=== PATIENT | female | born 1990 | race Caucasian/White ===

== ENCOUNTER → 2017-07-20 | Outpatient (CLI) | payer OTHER ==
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
== END | disposition home or self-care (01) ==
LOC: RADMRIMAIN 19:51
PROVIDERS: ATTEND Psychiatry & Neurology Pain Medicine
DX: M51.26 Other intervertebral disc displacement, lumbar region (principal); M51.36 Other intervertebral disc degeneration, lumbar region
CPT/HCPCS: 72148

== ENCOUNTER 2021-02-13 08:13 | Day surgery (SDC) | payer OTHER ==
[2021-02-12 12:01] VITALS: BMI 34.1
[~2021-02-13 08:13] MED LIST: ACETAMINOPHEN TAB 500 MG TAB PO PRN; DEXAMETHASONE SOD PHOSPHATE 4 MG/ML 1 ML VIAL IV ONE; FAMOTIDINE 20 MG/2 ML VIAL IV PRN; HEPARIN SODIUM,PORCINE/PF 5,000 UNIT/0.5 ML SYRINGE SQ PRN; LACTATED RINGERS 1,000 ML IV SCH; ONDANSETRON 4 MG/2 ML VIAL IVP ONE
[2021-02-13] MEDS ORDERED: LIDOCAINE 1% (10MG/ML) FOR IV START INTRADERMA ONE (09:04)
[2021-02-13] MEDS ORDERED: SCOPOLAMINE 1.5MG/72HR PATCH TRANSDERM ONE (09:20)
--- NOTE | 2021-02-13 09:34 | P.GSHP ---
History of Present Illness H&P Date: 02/13/21 Chief Complaint: Right upper quadrant pain This a 22-year-old female who presents today for laparoscopic cholestatic. Patient's found evidence of cholelithiasis. Past Medical History Past Medical History: GERD/Reflux Additional Past Medical History / Comment(s): back pain History of Any Multi-Drug Resistant Organisms: None Reported Past Surgical History: Tonsillectomy Past Anesthesia/Blood Transfusion Reactions: Previous Problems w/ Anesthesia, Motion Sickness Additional Past Anesthesia/Blood Transfusion Reaction / Comment(s): after tonsillectomy experienced shaking from anesthesia denies seizure Smoking Status: Current some day smoker, Vaper - Past Family History Mother Family Medical History: No Reported History Medications and Allergies Home Medications Medication Instructions Recorded Confirmed Type Ascorbic Acid [Vitamin C] 500 mg PO DAILY 02/12/21 02/12/21 History Biotin 5 mg PO DAILY 02/12/21 02/12/21 History Cider Vinegar [Apple Cider Vinegar] 300 mg PO DAILY 02/12/21 02/12/21 History Cyclobenzaprine [Flexeril] 7.5 mg PO DAILY 02/12/21 02/12/21 History Gabapentin [Neurontin] 200 mg PO TID 02/12/21 02/12/21 History Meloxicam 15 mg PO DAILY 02/12/21 02/12/21 History Multivitamins, Thera [Multivitamin 1 tab PO DAILY 02/12/21 02/12/21 History (formulary)] Omeprazole [PriLOSEC] 40 mg PO DAILY 02/12/21 02/12/21 History Turmeric Root Extract [Turmeric] 500 mg PO DAILY 02/12/21 02/12/21 History traMADol HCl [Ultram] 100 mg PO Q6HR PRN 02/12/21 02/12/21 History Allergies Allergy/AdvReac Type Severity Reaction Status Date / Time No Known Allergies Allergy Verified 02/12/21 11:50 Surgical - Exam Vital Signs Temp Pulse Resp BP Pulse Ox 98.0 F 74 16 124/63 100 02/13/21 08:51 02/13/21 08:51 02/13/21 08:51 02/13/21 08:51 02/13/21 08:51 - General well developed, well nourished, no distress - Eyes PERRL - ENT normal pinna - Neck no masses - Respiratory normal expansion - Cardiovascular Rhythm: regular - Abdomen Abdomen: soft, non tender Assessment and Plan Assessment: Cholelithiasis Right upper quadrant pain We'll perform laparoscopic cholecystectomy
[2021-02-13] MEDS ORDERED: PROPOFOL 10 MG/ML 20 ML VIAL IV ONE (09:41)
[2021-02-13] MEDS ORDERED: fentaNYL (PF) 50 MCG/ML 2 ML AMP ONE (09:41)
[2021-02-13] MEDS ORDERED: HYDROmorphone (PF) 1 MG/ML ONE (09:41)
[2021-02-13] MEDS ORDERED: LIDOCAINE 1% INJ 10MG/ML (20 ML MDV) ONE (09:41)
[2021-02-13] MEDS ORDERED: GLYCOPYRROLATE 0.2 MG/ML 2 ML VIAL ONE (09:41)
[2021-02-13] MEDS ORDERED: MIDAZOLAM 2 MG/2 ML VIAL ONE (09:41)
[2021-02-13] MEDS ORDERED: NEOSTIGMINE 1 MG/ML 10 ML VIAL ONE (09:41)
[2021-02-13] MEDS ORDERED: SUCCINYLCHOLINE CHLORIDE 100 MG/5 ML SYR IV ONE (09:41)
[2021-02-13] MEDS ORDERED: ROCURONIUM 10 MG/ML (5 ML VIAL) IV ONE (09:41)
[2021-02-13] MEDS ORDERED: LIDOCAINE 1%-EPI 1:100,000 20 ML VIAL SQ ONE (09:45)
--- NOTE | 2021-02-13 10:35 | P.OP ---
Date of Procedure: 02/13/21 Preoperative Diagnosis: Cholelithiasis Postoperative Diagnosis: Cholelithiasis Procedure(s) Performed: Laparoscopic cholecystectomy Anesthesia: KAT Surgeon: Roland Michael Estimated Blood Loss (ml): 5 Pathology: other (Gallbladder) Condition: stable Disposition: PACU Description of Procedure: The patient was placed on the operating table. The patient received a general endotracheal tube anesthesia. The patients abdomen was prepped and draped in the usual sterile fashion. Through an infraumbilical stab incision, the fascia of the anterior abdominal wall was grasped with a pair of Kochers and then the Veress needle was placed in the peritoneal cavity. Position of the Veress needle was confirmed with positive drop test. The abdomen was then insufflated. After adequate insufflation, the 10 mm trocar was placed in the peritoneal cavity. Following this the laparoscope was placed in the peritoneal cavity. The patient was placed in the head-up, right side up position and then a 5 mm trocar was placed in the right lateral and right subcostal position under direct visualization. A 8 mm trocar was placed in the epigastric position. The gallbladder was grasped in the fundus and infundibulum. Traction on the gallbladder was placed in the lateral and the cephalad positions. The triangle of Calot was visualized.. The cystic duct was bluntly dissected until the union of the cystic duct and common bile duct was seen. A critical view of safety was achieved. The cystic duct was then divided and sealed with the Harmonic scissors. A PDS Endoloop was then placed throughout the cystic duct stump. The cystic artery divided and sealed with the Harmonic scissors. The gallbladder was then removed from the liver bed using Harmonic scissors. The gallbladder was then extracted through the epigastric port site. Operative field was checked for any bleeding spots and Harmonic scissors was used to coagulate the liver bed. The abdomen was irrigated. The trocars were removed. The skin was closed using interrupted 3-0 Vicryl suture. Dermabond dressing were applied. The patient tolerated the procedure well.
[2021-02-13 10:40] VITALS: TEMP 97
[2021-02-13] MEDS: HYDROmorphone 0.5 MG/0.5 ML SYRINGE IVP PRN ×2 (10:47→10:54)
[2021-02-13 11:02] VITALS: RESP 16
[2021-02-13 12:18] VITALS: BP 135/79; PULSE 59
== END 2021-02-13 12:13 | disposition home or self-care (01) ==
LOC: OR 08:13
PROVIDERS: ATTEND Surgery
DX: K80.10 Calculus of gallbladder with chronic cholecystitis without obstruction (principal); K21.9 Gastro-esophageal reflux disease without esophagitis; Z90.89 Acquired absence of other organs; F17.290 Nicotine dependence, other tobacco product, uncomplicated; Z79.899 Other long term (current) drug therapy
CPT/HCPCS: 81025; 88304; 47562; J2250; J1100; J2710; J0690; J2405; J2001; J3010; J1170 ×2; J0330; J2704; J1644